=== PATIENT | female | born 2000 | race Caucasian/White ===

== ENCOUNTER 2023-11-29 16:26 | Emergency (ER) | payer MEDICAID, SELFPAY ==
[2023-11-29 16:27] VITALS: BP 134/83; PULSE 108; RESP 16; TEMP 36.7; O2SAT 96; BMI 16.8
[2023-11-29] MEDS: Lidocaine 1% (20 ml mdv) 20 ML Vial INFILT (18:10)
--- NOTE | 2023-11-29 18:22 | EDS_ITS ---
HPI History of Present Illness Chief Complaint: Bite Informant: patient Narrative Narrative: 23-year-old patient received dog bite to the left volar wrist. Unknown last tetanus. Several dogs were fighting which belonged to the patient's friends. Patient is left-handed. ROS ROS ED Constitutional Constitutional ED: Denies chills or weight loss Eyes Eyes: Denies change in vision or diplopia ENT ENT ED: Denies ear pain, rhinorrhea or sore throat Cardiovascular Cardiovascular: Denies chest pain, orthopnea, palpitations or racing heartbeat Respiratory/Chest Respiratory/Chest: Denies cough, dyspnea or orthopnea Gastrointestinal Gastrointestinal: Denies abdominal pain, diarrhea, nausea or vomiting Genitourinary Genitourinary ED: Denies dysuria, hematuria or urinary frequency Musculoskeletal Musculoskeletal: Denies arthralgias or myalgias Integumentary Reports other Details: Wrist laceration ; Denies abscess or rash Neurologic Neurologic: Denies headache(s) or weakness Psychiatric Psychiatric: Denies anxiety, depression, suicidal ideation or suicidal thoughts Endocrine Endocrinology: Denies polydipsia, polyphagia or polyuria Allergic/Immunologic Allergic/Immunologic ED: Denies mouth swelling, tongue swelling or urticaria PFSH PFSH Home Medications ?Medication ?Instructions ?Recorded ?Last Taken ?Type amoxicillin 875 mg-potassium 1 tab PO BID #10 tabs 11/29/23 Unknown Rx clavulanate 125 mg tablet Allergy/AdvReac Type Severity Reaction Status Date / Time No Known Allergies Allergy Verified 11/29/23 16:27 Social History Smoking Status: Never smoker EXAM Physical Exam Const Vital Signs: 11/29/23 16:27 Temperature 98.1 F Temperature Source Oral Pulse Rate 108 H Respiratory Rate 16 Blood Pressure 134/83 H Blood Pressure Mean 100 Pulse Ox 96 Oxygen Delivery Method Room Air Positive well nourished and well developed General Appearance ED: well developed and NAD HEENT Reports normocephalic, head/scalp atraumatic and moist mucous membranes Eyes PERRL and EOMs intact bilaterally Neck no lymphadenopathy, supple and no JVD Resp normal respiratory effort and clear to auscultation bilaterally Cardio regular rate, regular rhythm and no murmurs GI normal to inspection, nondistended, normoactive bowel sounds and non-tender Palpation: soft Back/Spine no CVA tenderness and normal ROM Extremity Extremity Narrative: There is a 1 cm gaping skin laceration to the volar left wrist. No active bleeding. Wound edges are not approximated. Neurovascular intact distal. General Extremety ED: Negative for edema General Extremity: Negative for edema Neuro oriented x3 and CN's II-XII intact bilaterally Sensorium / Orientation: alert Motor Exam: strength 5/5 throughout Psych mental status grossly normal Mood & Affect: Negative for depressed or tearful Skin no rashes or lesions noted and no wounds MDM MDM MDM Narrative Medical decision making narrative: Differential diagnosis includes foreign body neurovascular injury tendon injury laceration Wound was locally anesthetized using 1% lidocaine it was explored. No foreign bodies were noted. Wound was washed with Shur-Clens and irrigated with saline. It was closed using a single 4-0 Ethilon suture. Wound edges loosely approximated. Bacitracin and Band-Aid applied. Tetanus will be updated. Patient was placed on Augmentin. Follow-up 10 days for suture removal local wound care discussed with patient History & Record Review Discussion w/independent historian: Patient Discharge Plan Triage Chief Complaint: Bite ED Provider: Navdeep Johnson Dx/Rx/DC Orders Clinical Impression: Dog bite of extremity, Laceration of left wrist Instructions: ED Dog Bite Prescriptions: New amoxicillin-pot clavulanate 875-125 mg tablet 1 tab PO BID Qty: 10 0RF Primary Care Provider: Care Physician,No Primary Referrals: [facility] [Non-Staff] - 10 Day for suture removal Print Language: Upper Sorbian Disposition Disposition: Home, Self Care
[2023-11-29] MEDS: Diphth,Pertuss(Acell),Tet Vac 0.5 ML Vial IM (18:43)
[2023-11-29] MEDS: Amox/Clavulanate 875 MG Tablet PO (18:43)
[2023-11-29 18:48] VITALS: BP 128/77; PULSE 94; RESP 16; TEMP 36.6; O2SAT 99
== END 2023-11-29 19:13 | disposition home or self-care (01) ==
LOC: ED 18:00
PROVIDERS: Emergency Provider Emergency Medicine; Visit Provider Emergency Medicine
DX: S61.552A Open bite of left wrist, initial encounter (principal); W54.0XXA Bitten by dog, initial encounter; Z23 Encounter for immunization
CPT/HCPCS: 12001; 90715; 96372; 99283